=== PATIENT | female | born 1940 | race Caucasian/White ===

== ENCOUNTER → 2018-03-17 | Outpatient (CLI) | payer MEDICARE, OTHER ==
[~2018-03-17] MED LIST: ASP325T PO; CHOL200018 PO; CTLP20T PO; DOXY50CA6 PO; EZET1TAB44 PO; HYDR-3583 PO; LEVO88TA26 PO; LORA10TA7 PO; RLX60T PO
--- NOTE | 2018-03-17 15:52 | Diagnostic Imaging Report ---
INDICATION: Left neck fullness. FINDINGS: Sonographic interrogation of the area of fullness in the left neck was performed. Multiple hypoechoic masses in the left parotid gland are identified. In aggregate, this area measures approximately 3.6 x 1.2 x 2.9 cm. These may represent small cysts or lymph nodes. No other abnormality seen. IMPRESSION: Questionable cyst versus lymph nodes in the left parotid gland. Further characterization with CT of the soft tissues of the neck with contrast could be performed for further evaluation. Dictated by: Dictated on workstation # [id number]
== END ==
LOC: RAD 14:13
PROVIDERS: ATTEND Nurse Practitioner Family
DX: R22.1 Localized swelling, mass and lump, neck (principal)
CPT/HCPCS: 76536

== ENCOUNTER → 2018-04-03 | Outpatient (CLI) | payer MEDICARE, OTHER ==
[~2018-04-03] MED LIST changes: +IOHEXOL 350 MG/ML 100 ML (OMNIPAQUE 350) VIAL IV ONE; +NS 250 ML (IVPB) BAG IV ONE
[2018-04-03 08:46] LABS: BUN/CREATININE RATIO 16; CREATININE SERUM 0.67 MG/DL (0.60-1.30); GFR ESTIMATED > 60
--- NOTE | 2018-04-03 09:35 | Diagnostic Imaging Report ---
CLINICAL INDICATION: Patient with lump on left side of neck since 03/12/2018. Lump is getting bigger. Followup ultrasound dated 03/17/2018. Patient has cervical surgery in the 1980s. EXAM: CT scan of the neck soft tissue performed with 75 cc of Omnipaque 350 IV contrast. Coronal and sagittal reformatted images are created. COMPARISON: Ultrasound of the neck soft tissue dated 03/17/2018. FINDINGS: There is a 9 mm x 6 mm x 13 mm (AP x Trans x CC) ill-defined area of enhancement involving the posterior aspect of the parotid gland in the superficial portion. This area is partially obscured by dental streak artifact limiting evaluation. It is unknown if this represents the same abnormality seen on the comparison ultrasound as the previous lesion measured 3.6 cm x 1.2 cm x 2.9 cm. There are smaller lymph nodes seen adjacent to the left parotid gland tail. There is mild fat stranding seen adjacent to the left parotid gland tail and along the left upper neck soft tissue region. There is no parotid stone seen. The right parotid gland and bilateral submandibular glands are unremarkable. The nasopharynx, oropharynx, hypopharynx laryngeal structures are unremarkable. Thyroid gland is small in size, but otherwise unremarkable. There is no significant lymphadenopathy seen. There is atherosclerotic disease involving the bilateral carotid artery bifurcation and bilateral ICA bulbs. There is concern for possible severe stenosis of the origin of the left cervical ICA and roughly moderate stenosis involving the proximal to mid portion of the cervical right ICA. The visualized upper lung june show emphysematous lung disease. There is cervical spine degenerative disease with vertebral body spurs most pronounced at the C5-C6 and C6-C7 levels. IMPRESSION: 1: There is an ill-defined enhancing nodular area in the superficial portion of the left parotid gland posteriorly. It is unknown if this lesion correlates to the previously seen abnormality on the ultrasound. Considerations would include a primary salivary gland neoplasm versus lymph node. There is mild fat stranding seen along the left side of the neck and left periparotid region. There are subcentimeter lymph nodes adjacent to the parotid tail. There is no salivary gland duct stone seen. Followup CT scan of the neck soft tissue in three months is suggested to evaluate for stability. If this lesion persists and increased size of followup exam, then MRI of the parotids with and without contrast may help better delineate this area. 2: Emphysematous lung disease. 3: Nonspecific small thyroid gland. Dictated by: Dictated on workstation # [id number]
== END ==
LOC: RAD 08:02
PROVIDERS: ATTEND Otolaryngology Otolaryngology/Facial Plastic Surgery
DX: K11.8 Other diseases of salivary glands (principal)
CPT/HCPCS: 36415; 70491; 82565; 84520

== ENCOUNTER 2019-12-07 17:30 | Observation (INO) | payer MEDICARE, OTHER ==
[~2019-12-07] VITALS: Ht 160 cm; Wt 60.2 kg
[~2019-12-07 17:30] MED LIST changes: -IOHEXOL 350 MG/ML 100 ML (OMNIPAQUE 350) VIAL IV ONE; -NS 250 ML (IVPB) BAG IV ONE
[2019-12-07] MEDS ORDERED: NS IV 500 ML 500 ML ONE ×2 (17:35→17:37)
[2019-12-07] MEDS ORDERED: LABETALOL HCL 20 MG/4 ML VIAL IV STA (17:40)
[2019-12-07] MEDS ORDERED: NS IV 500 ML 500 ML IV ONE (17:41)
[2019-12-07 17:49] LABS: BASOPHILS # (AUTO) 0.1 10^3/uL (0.0-0.1); BASOPHILS % (AUTO) 1 % (0-10); EOSINOPHILS # (AUTO) 0.3 10^3/uL (0.0-0.3); EOSINOPHILS % (AUTO) 4 % (0-10); HEMATOCRIT 46 % (35-52); LYMPHOCYTES # (AUTO) 3.4 X 10^3 (1.0-4.0); LYMPHOCYTES % (AUTO) 41 % (12-44); MEAN CORPUSCULAR HEMOGLOBIN 30 PG (25-34); MEAN CORPUSCULAR HGB CONC 33 G/DL (32-36); MEAN CORPUSCULAR VOLUME 93 FL (80-99); MEAN PLATELET VOLUME 10.5 FL (7.4-10.4); MONOCYTES % (AUTO) 12 % (0-12); NEUTROPHILS # (AUTO) 3.5 X 10^3 (1.8-7.8); NEUTROPHILS % (AUTO) 43 % (42-75); PLATELET COUNT 257 10^3/uL (130-400); RED CELL DISTRIBUTION WIDTH 13.3 % (10.0-14.5); WHITE BLOOD COUNT 8.3 10^3/uL (4.3-11.0)
--- NOTE | 2019-12-07 17:49 | ED Neurological Problem ---
General Stated Complaint: SLURRED SPEACH,THINKS SHE HAD A STROKE Source: patient Exam Limitations: no limitations (MARIA T POWELL MD) History of Present Illness Date Seen by Provider: Dec 07, 2019 Time Seen by Provider: 17:32 Initial Comments Here with concerns that she may have had a stroke. She states that about 4:30 PM she had acute onset of shakiness and bilateral hand numbness. She is having difficulty with forming words. She notes that that occurred at about the same time. Her daughter called her and she was having a hard time forming words. That has improved. She is able walk in from the vehicle and walk to the bed relatively unassisted. States that she's had a problem like this before but it usually goes away with just rest. States that she doesn't have any real significant medical problems. Timing/Duration: 1 hour Severity: moderate Associated Symptoms: confusion; No fatigue, No fever/chills, No nausea/vomiting; paresthesia; No trouble walking; weakness (MARIA T POWELL MD) Allergies and Home Medications Allergies Coded Allergies: pneumococcal vaccine (Unverified Allergy, Severe, HIVES, EDEMA, 11/18/11) meperidine (Unverified Allergy, Mild, vomiting, 02/15/10) Patient Home Medication List Home Medication List Reviewed: Yes (MARIA T POWELL MD) Review of Systems Review of Systems Constitutional: see HPI; No chills, No fever Eyes: No Symptoms Reported Ears, Nose, Mouth, Throat: no symptoms reported Respiratory: no symptoms reported Cardiovascular: No chest pain, No palpitations Gastrointestinal: No abdominal pain, No nausea, No vomiting Genitourinary: no symptoms reported Musculoskeletal: no symptoms reported Skin: no symptoms reported Psychiatric/Neurological: See HPI, Tingling Endocrine: No Symptoms Reported (MARIA T POWELL MD) All Other Systems Reviewed Negative Unless Noted: Yes (MARIA T POWELL MD) Past Egjurow-Xtsuyc-Ayzeum Hx Past Med/Social Hx: Reviewed Nursing Past Med/Soc Hx (MARIA T POWELL MD) Patient Social History Alcohol Use: Denies Use Recreational Drug Use: No Smoking Status: Never a Smoker Recent Foreign Travel: No Contact w/Someone Who Travel: No (MARIA T POWELL MD) Immunizations Up To Date Date of Influenza Vaccine: Jun 12, 2011 (MARIA T POWELL MD) Past Medical History Surgeries: No Respiratory: No Cardiac: Yes High Cholesterol Neurological: No Genitourinary: No Musculoskeletal: No Endocrine: Yes Hypothyroidsim Cancer: No (MARIA T POWELL MD) Family Medical History Reviewed Nursing Family Hx (MARIA T POWELL MD) No Pertinent Family Hx (MARIA T POWELL MD) Physical Exam Vital Signs Vital Signs - First Documented 12/07/19 17:30 Pulse 89 Resp 18 B/P (MAP) 213/113 (146) Pulse Ox 93 (DASHA LEPE MD) Vital Signs Capillary Refill : (MARIA T POWELL MD) Height, Weight, BMI Height: '" Weight: lbs. oz. kg; BMI Method:Stated General Appearance: WD/WN, mild distress HEENT: PERRL/EOMI, pharynx normal Neck: full range of motion, supple Respiratory: lungs clear, normal breath sounds Cardiovascular: regular rate, rhythm, no murmur Peripheral Pulses: 2+ Dorsalis Pedis (R), 2+ Left Dors-Pedis (L), 2+ Radial Pulses (R), 2+ Radial Pulses (L) Gastrointestinal: non tender, soft Back: normal inspection, no CVA tenderness, no vertebral tenderness Extremities: normal range of motion, non-tender, normal inspection, no pedal edema Neurologic/Psychiatric: alert, normal mood/affect, oriented x 3 Crainal Nerves: normal hearing, normal speech, PERRL Coordination/Gait: normal finger to nose, normal gait Motor/Sensory: no motor deficit, no sensory deficit, no pronator drift Skin: normal color, warm/dry (MARIA T POWELL MD) Progress/Results/Core Measures Results/Orders Lab Results Laboratory Tests Test 12/07/19 17:40 12/07/19 18:15 Range/Units White Blood Count 8.3 4.3-11.0 10^3/uL Red Blood Count 4.97 4.35-5.85 10^6/uL Hemoglobin 15.0 11.5-16.0 G/DL Hematocrit 46 35-52 % Mean Corpuscular Volume 93 80-99 FL Mean Corpuscular Hemoglobin 30 25-34 PG Mean Corpuscular Hemoglobin Concent 33 32-36 G/DL Red Cell Distribution Width 13.3 10.0-14.5 % Platelet Count 257 130-400 10^3/uL Mean Platelet Volume 10.5 H 7.4-10.4 FL Neutrophils (%) (Auto) 43 42-75 % Lymphocytes (%) (Auto) 41 12-44 % Monocytes (%) (Auto) 12 0-12 % Eosinophils (%) (Auto) 4 0-10 % Basophils (%) (Auto) 1 0-10 % Neutrophils # (Auto) 3.5 1.8-7.8 X 10^3 Lymphocytes # (Auto) 3.4 1.0-4.0 X 10^3 Monocytes # (Auto) 1.0 0.0-1.0 X 10^3 Eosinophils # (Auto) 0.3 0.0-0.3 10^3/uL Basophils # (Auto) 0.1 0.0-0.1 10^3/uL Prothrombin Time 12.6 12.2-14.7 SEC INR Comment 0.9 0.8-1.4 Activated Partial Thromboplast Time 26 24-35 SEC D-Dimer 2.05 H 0.00-0.49 UG/ML Sodium Level 134 L 135-145 MMOL/L Potassium Level 3.4 L 3.6-5.0 MMOL/L Chloride Level 101 98-107 MMOL/L Carbon Dioxide Level 19 L 21-32 MMOL/L Anion Gap 14 5-14 MMOL/L Blood Urea Nitrogen 8 7-18 MG/DL Creatinine 0.72 0.60-1.30 MG/DL Estimat Glomerular Filtration Rate > 60 BUN/Creatinine Ratio 11 Glucose Level 97 70-105 MG/DL Glucometer 100 70-110 MG/DL Calcium Level 9.4 8.5-10.1 MG/DL Corrected Calcium 8.5-10.1 MG/DL Total Bilirubin 0.3 0.1-1.0 MG/DL Aspartate Amino Transf (AST/SGOT) 19 5-34 U/L Alanine Aminotransferase (ALT/SGPT) 13 0-55 U/L Alkaline Phosphatase 147 H 40-136 U/L Troponin I < 0.028 <0.028 NG/ML Total Protein 8.3 H 6.4-8.2 GM/DL Albumin 4.7 H 3.2-4.5 GM/DL Thyroid Stimulating Hormone (TSH) 2.03 0.35-4.94 UIU/ML Free Thyroxine 1.17 0.70-1.48 NG/DL Urine Color YELLOW Urine Clarity CLEAR Urine pH 6.0 5-9 Urine Specific [place] 1.010 L 1.016-1.022 Urine Protein NEGATIVE NEGATIVE Urine Glucose (UA) NEGATIVE NEGATIVE Urine Ketones NEGATIVE NEGATIVE Urine Nitrite NEGATIVE NEGATIVE Urine Bilirubin NEGATIVE NEGATIVE Urine Urobilinogen 0.2 < = 1.0 MG/DL Urine Leukocyte Esterase 2+ H NEGATIVE Urine RBC (Auto) NEGATIVE NEGATIVE Urine RBC NONE /HPF Urine WBC 2-5 /HPF Urine Squamous Epithelial Cells 2-5 /HPF Urine Crystals NONE /LPF Urine Bacteria TRACE /HPF Urine Casts NONE /LPF Urine Mucus NEGATIVE /LPF Urine Culture Indicated NO (DASHA LEPE MD) My Orders Orders - DASHA LEPE MD Ct Angio Head/Neck (12/07/19 18:35) Iohexol Injection (Omnipaque 350 Mg/Ml 1 (12/07/19 18:45) Received Contrast (Hold Metformin- Contr (12/07/19 18:45) Sodium Chloride Flush (Catheter Flush Sy (12/07/19 18:45) Ns (Ivpb) (Sodium Chloride 0.9% Ivpb Bag (12/07/19 18:45) Thyroid Stimulating Hormone (12/07/19 18:49) Free T4 (Free Thyroxine) (12/07/19 18:49) Aspirin Tablet (Aspirin Tablet) (12/07/19 19:45) (DASHA LEPE MD) Medications Given in ED Current Medications Medications Dose Ordered Sig/Yousuf Route Start Time Stop Time Status Last Admin Dose Admin Iohexol 100 ml ONCE ONCE IV 12/07/19 18:45 12/07/19 18:46 DC 12/07/19 19:10 75 ML Sodium Chloride 10 ml NEEDED PRN IV 12/07/19 18:45 12/07/19 19:23 10 ML Sodium Chloride 100 ml ONCE ONCE IV 12/07/19 18:45 12/07/19 18:46 DC 12/07/19 19:10 80 ML Sodium Chloride 500 ml @ 0 mls/hr Q0M ONCE IV 12/07/19 17:41 12/07/19 17:42 DC 12/07/19 17:46 500 MLS/HR (DASHA LEPE MD) Vital Signs/I&O 12/07/19 12/07/19 17:30 18:47 Pulse 89 64 Resp 18 18 B/P (MAP) 213/113 (146) 172/81 (111) Pulse Ox 93 94 (DASHA LEPE MD) Progress Progress Note : Progress Note Seen and evaluated on arrival. IV, labs, EKG, chest x-ray and CT head ordered. Stroke order set initiated. Normal saline 500 mL bolus. Finger stick blood sugar 100. Stroke scale 0 as assessed by me and nursing. Patient did have significant hypertension with a pressure 200s over 100s on arrival 2. Labetalol 20 mg IV ordered. Monitor patient. (MARIA T POWELL MD) Progress Note #1: Time: 18:41 Progress Note I assumed care of this patient from Dr. Powell. CT results have been reviewed. Given her symptoms, CT angiogram to evaluate carotid arteries and large cerebral vessels is appropriate. CT angiogram has been ordered and patient is agreeable. She is still feeling much better and asymptomatic at this time. Blood pressure is within acceptable range after labetalol. Patient also has a history of thyroid disease. I will add a TSH and free T4 to her labs. Progress Note #2: Time: 20:16 Progress Note Patient remains asymptomatic and blood pressure remains controlled. Due to the extreme hypertension on patient's presentation and the seriousness of her symptoms at that time, admission overnight is felt most appropriate. Case was discussed with Dr. Bryan and bridging orders reviewed. Patient is agreeable to admission. Her daughter was updated. CODE STATUS was discussed and patient and daughter agree DO NOT RESUSCITATE is their desired status. CT angiogram was obtained and demonstrated stenosis of the vertebral artery but no pathology thought to be associated with her symptoms on presentation. 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 Normal axis. No evidence of ST elevation CA. Similar to previous of 05/25/2011. Interpreted by me. (MARIA T POWELL MD) Diagnostic Imaging Diagonstic Imaging: CT Plain Films/CT/US/NM/MRI: head Comments CT head viewed by me and report reviewed. See report below: NAME: LISY HOLDEN [facility] REC#: [id number] PT STATUS: REG ER : 1940 PHYSICIAN: MARIA T POWELL MD ADMIT DATE: 12/07/19/ER Draft Date of Exam:12/07/19 CT HEAD WO-R/O STROKE PROCEDURE: CT head without contrast, rule out stroke. TECHNIQUE: Multiple contiguous axial images were obtained through the brain without the use of intravenous contrast. Auto Exposure Controls were utilized during the CT exam to meet ALARA standards for radiation dose reduction. INDICATION: Evaluate for stroke. Syncope. Both arms going numb. Aphasia. COMPARISON: 10/25/2011. FINDINGS: No large acute territorial ischemia, mass, or hemorrhage. Focal decreased attenuation is seen in the left basal ganglia, favored to represent chronic encephalomalacia from prior infarct. No midline shift or mass effect. Decreased attenuation is seen in the periventricular and subcortical white matter. The ventricles and cortical sulci are prominent. The basilar cisterns are patent and unremarkable. The calvarium is intact. The visualized paranasal sinuses are clear. IMPRESSION: 1. No large acute territorial ischemia, mass, or hemorrhage. If continued concern for acute ischemia, consider MRI brain to further evaluate. 2. 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 3. Chronic microvascular disease with generalized parenchymal volume loss. Dictated on workstation # [id number] Dict: 12/07/19 1814 Trans: 12/07/19 1828 [facility] [id number] Interpreted by: MAHENDRA SANTOS DO Diagonstic Imaging: Xray Plain Films/CT/US/NM/MRI: chest Comments Chest x-ray viewed by me and report reviewed. See report below: NAME: LISY HOLDEN [facility] REC#: [id number] PT STATUS: REG ER : 1940 PHYSICIAN: MARIA T POWELL MD ADMIT DATE: 12/07/19/ER Draft Date of Exam:12/07/19 CHEST 1 VIEW, AP/PA ONLY Clinical indication: Patient having symptoms of shaking and passing out. Rule out stroke. Exam: Chest x-ray PA view only. Comparisons: Chest x-ray dated 05/13/2010. Findings: Lungs/pleura: Bilateral apical pleural parenchymal thickening/scarring is again seen. Lungs are clear. There is no pneumothorax. There is no pleural effusion. Mediastinum: Unremarkable. Pulmonary vasculature: Unremarkable. Heart: Cardiac silhouette is upper limits of normal size. Bones/extrathoracic soft tissue: Unremarkable. Impression: Stable chest x-ray exam with no interval radiographic evidence of acute cardiopulmonary process. Dictated on workstation # [id number] Dict: 12/07/191817 Trans: 12/07/191827 [facility] [id number] Interpreted by: KATHY LOZA MD Diagonstic Imaging: CT Plain Films/CT/US/NM/MRI: other (angiogram head and neck) Comments CT angiogram of the head and neck report reviewed and discussed with the radiologist. See report below: NAME: LISY HOLDEN [facility] REC#: [id number] PT STATUS: REG ER : 1940 PHYSICIAN: DASHA LEPE MD ADMIT DATE: 12/07/19/ER Signed Date of Exam:12/07/19 CT ANGIO HEAD/NECK PROCEDURE: CT angiography of the head and CT angiography of the neck with and without contrast. TECHNIQUE: Contiguous noncontrast images were obtained from the skull base through the vertex. After intravenous contrast administration, helical CT angiography of the neck was performed. Source data was reformatted into 3D MIP projections. Delayed post contrast acquisition was also obtained. Auto Exposure Controls were utilized during the CT exam to meet ALARA standards for radiation dose reduction. INDICATION: Aphasia. Bilateral arm numbness. Comparison: CT head performed the same date. FINDINGS: CTA Neck: The visualized portions of the aortic arch demonstrate no evidence of aneurysm or dissection. There is conventional branching pattern of the great vessels of the aorta. The brachiocephalic artery is normal in course and caliber. The right and left common carotid origins are unremarkable. The origin of the left subclavian artery is patent. The common carotid arteries and internal carotid arteries demonstrate a tortuous course. There is calcified atherosclerotic plaque in the bilateral carotid bulbs and proximal internal carotid arteries without flow-limiting stenosis. No evidence of dissection in the carotid systems. The external carotid arteries are patent and unremarkable. The right vertebral artery is dominant. The origin of the right vertebral artery is seen and is unremarkable. The origin of the left vertebral artery is seen and is unremarkable. There is no focal stenosis seen within the neck. There is no dissection. The osseous structures of the cervical spine are unremarkable. Included views through the lung apices demonstrate centrilobular emphysema. CTA brain: Atherosclerotic plaque is seen in the [place] of the bilateral terminal internal carotid arteries without significant stenosis. No stenosis is seen in the bilateral anterior, middle, and posterior cerebral arteries. Prominent bilateral posterior communicating arteries are visualized. No evidence of aneurysm the [place]. In the posterior circulation, the right vertebral artery is dominant. There is high-grade stenosis of the distal right vertebral artery of approximately 90%. Both the right and left PICA arteries are identified. The basilar artery is somewhat diminutive. The terminal branch vessels including the superior cerebellar arteries unremarkable. IMPRESSION: 1. 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 2. Diminutive appearance of the basilar artery, likely due to prominent bilateral posterior communicating arteries. 3. No evidence of large vessel occlusion. No aneurysm in the [place]. 4. No acute dissection or stenosis in the bilateral carotid arteries. Findings were discussed with Dr. Lepe at 7:25 PM on 12/07/[address] Mahendra Santos. Dictated by: Dictated on workstation # [id number] Dict: 12/07/191916 Trans: 12/07/191930 [facility] [id number] Interpreted by: MAHENDRA SANTOS DO Electronically signed by: MAHENDRA SANTOS DO 12/07/191930 (DASHA LEPE MD) Departure Impression Primary Impression: Expressive aphasia Additional Impression: Malignant hypertension Disposition: ADMITTED INPATIENT Condition: Improved Admissions Decision to Admit Reason: Admit from ER (General) Decision to Admit/Date: Dec 07, 2019 Time/Decision to Admit Time: 18:35 (DASHA LEPE MD) Departure-Patient Inst. Referrals: ALESHIA GARCIA MD (PCP/Family) Primary Care Physician MARIA T POWELL MD Dec 07, 2019 17:49 DASHA LEPE MD Dec 07, 2019 18:34
--- NOTE | 2019-12-07 17:52 | NUR ---
CALLED DAUGHTER AXEL AT [phone] AND GAVE HER UPDATE
[2019-12-07 18:09] LABS: FIBRIN DEGRADATION PRODUCTS 2.05 UG/ML (0.00-0.49); INR 0.9 (0.8-1.4); PROTHROMBIN TIME PATIENT 12.6 SEC (12.2-14.7)
[2019-12-07] MEDS ORDERED: morphine INJ 10 MG/ML 1ML (SYR OR VIAL) IVP STA (18:15)
--- NOTE | 2019-12-07 18:15 | NUR ---
BACK FROM CT
[2019-12-07 18:16] LABS: ALANINE AMINOTRANSFERASE 13 U/L (0-55); ALBUMIN 4.7 GM/DL (3.2-4.5); ALKALINE PHOSPHATASE 147 U/L (40-136); BILIRUBIN,TOTAL 0.3 MG/DL (0.1-1.0); BUN/CREATININE RATIO 11; CALCIUM 9.4 MG/DL (8.5-10.1); CARBON DIOXIDE 19 MMOL/L (21-32); CHLORIDE 101 MMOL/L (98-107); CREATININE SERUM 0.72 MG/DL (0.60-1.30); GFR ESTIMATED > 60; GLUCOSE 97 MG/DL (70-105); POTASSIUM 3.4 MMOL/L (3.6-5.0); SODIUM 134 MMOL/L (135-145); TOTAL PROTEIN 8.3 GM/DL (6.4-8.2)
[2019-12-07 18:28] LABS: BILIRUBIN,URINE NEGATIVE (NEGATIVE); CLARITY,URINE CLEAR; COLOR,URINE YELLOW; GLUCOSE, URINE (UA) NEGATIVE (NEGATIVE); KETONES,URINE NEGATIVE (NEGATIVE); LEUKOCYTE ESTERASE ,URINE 2+ (NEGATIVE); NITRITE,URINE NEGATIVE (NEGATIVE); PROTEIN,URINE NEGATIVE (NEGATIVE)
--- NOTE | 2019-12-07 18:29 | Diagnostic Imaging Report ---
PROCEDURE: CT head without contrast, rule out stroke. TECHNIQUE: Multiple contiguous axial images were obtained through the brain without the use of intravenous contrast. Auto Exposure Controls were utilized during the CT exam to meet ALARA standards for radiation dose reduction. INDICATION: Evaluate for stroke. Syncope. Both arms going numb. Aphasia. COMPARISON: 10/25/2011. FINDINGS: No large acute territorial ischemia, mass, or hemorrhage. Focal decreased attenuation is seen in the left basal ganglia, favored to represent chronic encephalomalacia from prior infarct. No midline shift or mass effect. Decreased attenuation is seen in the periventricular and subcortical white matter. The ventricles and cortical sulci are prominent. The basilar cisterns are patent and unremarkable. The calvarium is intact. The visualized paranasal sinuses are clear. IMPRESSION: 1. No large acute territorial ischemia, mass, or hemorrhage. If continued concern for acute ischemia, consider MRI brain to further evaluate. 2. 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 3. Chronic microvascular disease with generalized parenchymal volume loss. Dictated by: Dictated on workstation # [id number]
--- NOTE | 2019-12-07 18:29 | Diagnostic Imaging Report ---
Clinical indication: Patient having symptoms of shaking and passing out. Rule out stroke. Exam: Chest x-ray PA view only. Comparisons: Chest x-ray dated 05/13/2010. Findings: Lungs/pleura: Bilateral apical pleural parenchymal thickening/scarring is again seen. Lungs are clear. There is no pneumothorax. There is no pleural effusion. Mediastinum: Unremarkable. Pulmonary vasculature: Unremarkable. Heart: Cardiac silhouette is upper limits of normal size. Bones/extrathoracic soft tissue: Unremarkable. Impression: Stable chest x-ray exam with no interval radiographic evidence of acute cardiopulmonary process. Dictated by: Dictated on workstation # [id number]
[2019-12-07] MEDS ORDERED: CATHETER FLUSH 10 ML SYR IV PRN (18:45)
[2019-12-07] MEDS ORDERED: IOHEXOL 350 MG/ML 100 ML (OMNIPAQUE 350) VIAL IV ONE (18:45)
[2019-12-07] MEDS ORDERED: NS 100 ML (IVPB) BAG IV ONE (18:45)
[2019-12-07] MEDS ORDERED: HOLD METFORMIN - RECEIVED CONTRAST 20 ML VIAL IV SCH (18:45)
[2019-12-07 18:47] VITALS: BP 172/81
[2019-12-07 18:54] LABS: BACTERIA,URINE TRACE /HPF
--- NOTE | 2019-12-07 18:54 | NUR ---
TO CT ANGIO
--- NOTE | 2019-12-07 19:00 | NUR ---
REPORT TO HILARIA
[2019-12-07 19:24] LABS: FREE T4 (FREE THYROXINE) 1.17 NG/DL (0.70-1.48)
--- NOTE | 2019-12-07 19:30 | Diagnostic Imaging Report ---
PROCEDURE: CT angiography of the head and CT angiography of the neck with and without contrast. TECHNIQUE: Contiguous noncontrast images were obtained from the skull base through the vertex. After intravenous contrast administration, helical CT angiography of the neck was performed. Source data was reformatted into 3D MIP projections. Delayed post contrast acquisition was also obtained. Auto Exposure Controls were utilized during the CT exam to meet ALARA standards for radiation dose reduction. INDICATION: Aphasia. Bilateral arm numbness. Comparison: CT head performed the same date. FINDINGS: CTA Neck: The visualized portions of the aortic arch demonstrate no evidence of aneurysm or dissection. There is conventional branching pattern of the great vessels of the aorta. The brachiocephalic artery is normal in course and caliber. The right and left common carotid origins are unremarkable. The origin of the left subclavian artery is patent. The common carotid arteries and internal carotid arteries demonstrate a tortuous course. There is calcified atherosclerotic plaque in the bilateral carotid bulbs and proximal internal carotid arteries without flow-limiting stenosis. No evidence of dissection in the carotid systems. The external carotid arteries are patent and unremarkable. The right vertebral artery is dominant. The origin of the right vertebral artery is seen and is unremarkable. The origin of the left vertebral artery is seen and is unremarkable. There is no focal stenosis seen within the neck. There is no dissection. The osseous structures of the cervical spine are unremarkable. Included views through the lung apices demonstrate centrilobular emphysema. CTA brain: Atherosclerotic plaque is seen in the godwin of the bilateral terminal internal carotid arteries without significant stenosis. No stenosis is seen in the bilateral anterior, middle, and posterior cerebral arteries. Prominent bilateral posterior communicating arteries are visualized. No evidence of aneurysm the deering of Farris. In the posterior circulation, the right vertebral artery is dominant. There is high-grade stenosis of the distal right vertebral artery of approximately 90%. Both the right and left PICA arteries are identified. The basilar artery is somewhat diminutive. The terminal branch vessels including the superior cerebellar arteries unremarkable. IMPRESSION: 1. 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 2. Diminutive appearance of the basilar artery, likely due to prominent bilateral posterior communicating arteries. 3. No evidence of large vessel occlusion. No aneurysm in the deering of Farris. 4. No acute dissection or stenosis in the bilateral carotid arteries. Findings were discussed with Dr. Lepe at 7:25 PM on 12/07/[address] Mahendra Geiger. Dictated by: Dictated on workstation # [id number]
[2019-12-07] MEDS ORDERED: ASPIRIN 325 MG (5 GR) TABLET PO ONE (19:45)
[2019-12-07 21:04] VITALS: BP 187/83
--- NOTE | 2019-12-07 21:10 | NUR ---
LISY HOLDEN admitted to room 415-1, with an admitting diagnosis of Expressive Aphasia and Malignant Hypertension, on 12/07/19 from ED via wheelchair, accompanied by staff.LISY HOLDEN introduced to surroundings, call light, bed controls, phone, TV, temperature control, lights, meal times, smoking policy, visitor policy, side rail policy, bathrooms and showers. Patient Rights given to patient in the handbook. LISY HOLDEN verbalizes understanding that [facility] is not responsible for the loss or damage to any personal effects or valuables that are kept in the patients posession during their hospitalization. LISY HOLDEN verbalizes understanding of Interdisciplinary Patient Education. Patient and/or family were informed about the Rapid Response Team and its purpose.
[2019-12-07 21:13] VITALS: BP 205/83
[2019-12-07] MEDS ORDERED: LABETALOL HCL 20 MG/4 ML VIAL IV PRN (21:15)
[2019-12-07 23:55] VITALS: BP 169/70
[2019-12-08 04:29] LABS: CHOLESTEROL 232 MG/DL (< 200); HDL CHOLESTEROL 49 MG/DL (40-60); TRIGLYCERIDES 115 MG/DL (<150); VLDL CHOLESTEROL 23 MG/DL (5-40)
[2019-12-08 04:35] VITALS: BP 149/74
[2019-12-08 07:39] VITALS: BP 182/77
[2019-12-08 08:00] VITALS: BP 179/73
[2019-12-08] MEDS ORDERED: ASPIRIN 81 MG CHEW (CHILDREN'S ASA) PO SCH (09:00)
--- NOTE | 2019-12-08 10:02 | Physical Therapy Evaluation ---
PT Evaluation-General Medical Diagnosis Admission Date Dec 07, 2019 at 19:46 Medical Diagnosis: Expressive Aphasia and Malignant Hypertension Onset Date: Dec 07, 2019 Therapy Diagnosis Therapy Diagnosis: weakness Precautions Precautions/Isolations: Standard Precautions Weight Bear Status Right Lower Extremity: Right Weight Bearing/Tolerated Left Lower Extremity: Left Weight Bearing/Tolerated Referral Physician: Randi Reason for Referral: Evaluation/Treatment Medical History Pertinent Medical History: Hypothroidism Additional Medical History high cholesterol Social History Current Living Status: Alone Entry Into Home: Level Entry Prior Prior Level of Function SCALE: Activities may be completed with or without assistive devices. 8-Vtnvfzmvaz-pfziymo completes the activity by him/herself with no assistance from a helper. 5-Set-up or Clean-up Assistance-helper sets up or cleans up; patient completes activity. [place] assists only prior to or following the activity. 4-Supervision or Touching Assistance-helper provides verbal cues and/or touching/steadying and/or contact guard assistance as patient completes activity. Assistance may be provided throughout the activity or intermittently. 3-Partial/Moderate Assistance-helper does LESS THAN HALF the effort. [place] lifts, holds or supports trunk or limbs, but provides less than half the effort. 2-Substantial/Maximal Assistance-helper does MORE THAN HALF the effort. [place] lifts or holds trunk or limbs and provides more than half the effort. 6-Dsahvnvzp-popveo does ALL the effort. Patient does none of the effort to complete the activity. Or, the assistance of 2 or more helpers is required for the patient to complete the activity. If activity was not attempted, code reason: 7-Patient Refused. 9-Not Applicable-not attempted and the patient did not perform the activity before the current illness, exacerbation or injury. 10-Not Attempted due to Environmental Limitations-(lack of equipment, weather restraints, etc.). 88-Not Attempted due to Medical Conditions or Safety Concerns. Bed Mobility: 6 Transfers (B,C,W/C): 6 Gait: 6 Stairs: 6 Indoor Mobility (Ambulation): Independent Stairs: Independent PT Evaluation-Current Subjective Patient in bed pre tx, agrees to PT, has no complaints of pain. Pt/Family Goals to be independent at home Objective Patient Orientation: Person, Place, Situation ROM/Strength ROM Lower Extremities WNL Strength Lower Extremities 5/5 gross RLE, 5/5 gross LLE except for hip flexion 4+/5 Neuromuscular (Tone, Coordination, Reflexes) good tracking bilaterally, possibly slight decreased peripheral vision on the left side Sensory Hearing: Functional Sensation Right Lower Extremit: Intact Sensation Left Lower Extremity: Intact Transfers Roll Left to Right (QC): 6 Sit to Lying (QC): 6 Lying to Sitting/Side of Bed(Q: 6 Sit to Stand (QC): 6 Chair/Hap-yv-Ksmca Xfer(QC): 6 Gait Walk 10 feet (QC): 6 Walk 50 ft with 2 Turns(QC): 6 Walk 150 ft (QC): 6 Distance: 300' Gait Assistive Device: None Comments/Gait Description steady, brisk ambulation, no complaints of dizziness, no unsteadiness Balance Sitting Static: Normal Sitting Dynamic: Normal Standing Static: Normal Standing Dynamic: Normal Assessment/Needs Patient independent with mobility, no unsteadiness or balance impairment. Rehab Potential: Good PT Plan Problem List Problem List: Functional Strength Treatment/Plan Treatment Plan: Discontinue PT Treatment Duration: Dec 08, 2019 Frequency: Patient and/or Family Agrees t: Yes Safety Risks/Education Patient Education: Gait Training, Transfer Techniques, Correct Positioning, Safety Issues Teaching Recipient: Patient Teaching Methods: Demonstration, Discussion Response to Teaching: Verbalize Understanding Discharge Recommendations Plan discharge Therapy Discharge Recommendati: Home & Family Time/GCodes Time In: 942 Time Out: 954 Total Billed Treatment Time: 12 Total Billed Treatment 1 visit KRISTEL Mullins' RINA JACOBS PT Dec 08, 2019 10:02
--- NOTE | 2019-12-08 11:21 | NUR ---
Pt doing well and eager for discharge.
[2019-12-08 11:49] VITALS: BP 161/72
--- NOTE | 2019-12-08 12:07 | Discharge Inst-Simple/Standard ---
Discharge Inst-Standard Patient Instructions/Follow Up Plan of Care/Instructions/FU: Please continue to take your medications as written. Please follow up with your PCP in the next week to follow up this hospital stay. Activity as Tolerated: Yes Discharge Diet: Cardiac Diet Return to The Hospital For: Chest pain, palipations, facial droop, weakness, slurred or abnormal speech, fever, shortness of breath, if you feel you are getting worse. SILVER KAT MD Dec 08, 2019 12:07
[2019-12-08] MEDS ORDERED: POTA8TAB53 (12:26)
[2019-12-08] MEDS ORDERED: LEVO88TA54 (12:26)
--- NOTE | 2019-12-08 13:57 | Short Stay Summary-Hospitalist ---
History of Present Illness HPI/Chief Complaint Pt is an 79yoCF with a PMH of hypothyroidism and osteoporosis who presented to the ER due to aphasia. She states that she was feeling well yesterday and at 4pm when she sat down to watch Medical Technician Meghan she got very nauseated and being to feel "terrible." Shortly after that her daughter called her and patient was unable to speak. She states she could only get "jibberish" out. Her daughter then went to her house to check on her and this prompted her to seek care in the ER. By available to the ER she was able to ambulate in on her own and her symptoms had nearly resolved. She was taken to CT which was negative for ICH. She was admitted for TIA due to elevated ABCD2 score. This morning she states she feels better and her speech has returned to normal. She has no complaints. She has been up and ambulated with PT and is ambulatory while I am in the room. She is requesting discharge home. Source: patient Date Seen 12/08/19 Time Seen by a Provider: 10:30 Attending Physician Joy Kat MD PCP Shin Cunningham MD Referring Physician Date of Admission Dec 07, 2019 at 19:46 Home Medications & Allergies Home Medications Reviewed patient Home Medication Reconciliation performed by pharmacy medication reconciliations installer technician and/or nursing. Patients Allergies have been reviewed. Allergies Allergies Coded Allergies pneumococcal vaccine (Unverified Allergy, Severe, HIVES, EDEMA, 11/18/11) meperidine (Unverified Allergy, Mild, vomiting, 02/15/10) Past Fgryxye-Uwggdp-Ftwudx Hx Past Med/Social Hx: Reviewed Nursing Past Med/Soc Hx Patient Social History Employed/Student: retired Alcohol Use: Denies Use Recreational Drug Use: No Smoking Status: Never a Smoker Recent Foreign Travel: No Contact w/other who traveled: No Recent Infectious Disease Expo: No Immunizations Up To Date Date of Influenza Vaccine: Jun 12, 2019 Past Medical History Cardiac: High Cholesterol Neurological: TIA Musculoskeletal: Osteoporosis Endocrine: Hypothyroidsim Family History Reviewed Nursing Family Hx No Pertinent Family Hx Review of Systems Constitutional: No chills, No fever EENTM: no symptoms reported Respiratory: no symptoms reported Cardiovascular: No chest pain, No palpitations Gastrointestinal: No abdominal pain; nausea; No vomiting Genitourinary: no symptoms reported Musculoskeletal: no symptoms reported Skin: no symptoms reported Psychiatric/Neurological: See HPI Physical Exam Physical Exam Vital Signs Vital Signs - First Documented 12/07/19 12/07/19 17:30 20:55 Temp 36.7 Pulse 89 Resp 18 B/P (MAP) 213/113 (146) Pulse Ox 93 O2 Delivery Room Air Capillary Refill : Less Than 3 Seconds Height, Weight, BMI Height: '" Weight: lbs. oz. kg; 23.51 BMI Method:Stated General Appearance: No Apparent Distress, WD/WN HEENT: Moist Mucous Membranes; No Scleral Icterus (L), No Scleral Icterus (R) Neck: Normal Inspection, Supple Respiratory: Lungs Clear, No Accessory Muscle Use, No Respiratory Distress Cardiovascular: Regular Rate, Rhythm, No Murmur Gastrointestinal: Normal Bowel Sounds, Non Tender, Soft Extremity: No Calf Tenderness, No Pedal Edema Neurologic/Psychiatric: Alert, Oriented x3, Normal Mood/Affect; No Abnormal Gait, No Aphasia, No Facial Droop Skin: Normal Color, Warm/Dry Results Results/Procedures Labs Laboratory Tests 12/07/19 17:40 Patient resulted labs reviewed. Imaging: Reviewed Imaging Report Imaging Date of Exam:12/07/19 CT HEAD WO-R/O STROKE PROCEDURE: CT head without contrast, rule out stroke. TECHNIQUE: Multiple contiguous axial images were obtained through the brain without the use of intravenous contrast. Auto Exposure Controls were utilized during the CT exam to meet ALARA standards for radiation dose reduction. INDICATION: Evaluate for stroke. Syncope. Both arms going numb. Aphasia. COMPARISON: 10/25/2011. FINDINGS: No large acute territorial ischemia, mass, or hemorrhage. Focal decreased attenuation is seen in the left basal ganglia, favored to represent chronic encephalomalacia from prior infarct. No midline shift or mass effect. Decreased attenuation is seen in the periventricular and subcortical white matter. The ventricles and cortical sulci are prominent. The basilar cisterns are patent and unremarkable. The calvarium is intact. The visualized paranasal sinuses are clear. IMPRESSION: 1. No large acute territorial ischemia, mass, or hemorrhage. If continued concern for acute ischemia, consider MRI brain to further evaluate. 2. 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 3. Chronic microvascular disease with generalized parenchymal volume loss. Short Stay Diagnosis Discharge Diagnosis-Short Stay Admission Diagnosis TIA Final Discharge Diagnosis TIA Conclusion Plan TIA Hyperlipidemia MOnitored on telemetry overnight and remained in sinus rhythm Symptoms now completely resolved, requesting discharge home Discussed secondary prevention- she declines statin as she did not tolerate it before Will need follow up with Dr Cunningham as an outpatient, can consider MRI\\ Ambulated with PT, will DC home Clinical Quality Measures DVT/VTE Risk/Contraindication: Risk Factor Score Per Nursin RFS Level Per Nursing on Admit: 2=Moderate JOY KAT MD Dec 08, 2019 13:57
[2019-12-08 15:00] VITALS: BP 161/72
== END 2019-12-08 13:51 | disposition home or self-care (01) ==
LOC: EDUNIT# 17:30 → ER 17:32 → 4TH 19:46 → UNDOADMOB 19:46 → 4TH 21:01 → UNDODISOB 12-08 15:00
PROVIDERS: ADMIT Family Medicine; ATTEND Family Medicine
DX: G45.9 Transient cerebral ischemic attack, unspecified (principal); R47.01 Aphasia; E78.5 Hyperlipidemia, unspecified; E03.9 Hypothyroidism, unspecified; I10 Essential (primary) hypertension; I67.2 Cerebral atherosclerosis; M81.0 Age-related osteoporosis without current pathological fracture; Z66 Do not resuscitate
CPT/HCPCS: 36415; 70450; 70496; 70498; 71045; 80053; 80061; 81000; 82962; 84439; 84443; 84484; 85025; 85379; 85610; 85730; 93041; 96374; G0378

== ENCOUNTER → 2020-12-15 | Outpatient (CLI) | payer MEDICARE, OTHER ==
[~2020-12-15] MED LIST changes: +LEVO88TA54; +POTA8TAB54
== END ==
LOC: CARD 11:30
PROVIDERS: ATTEND Nurse Practitioner Family
DX: I49.9 Cardiac arrhythmia, unspecified (principal); Z86.79 Personal history of other diseases of the circulatory system
CPT/HCPCS: 93005

== ENCOUNTER 2022-05-07 18:03 | Emergency (ER) | payer MEDICARE, OTHER ==
[~2022-05-07] VITALS: Ht 160 cm; Wt 60.2 kg
--- NOTE | 2022-05-07 18:19 | ED Lower Extremity ---
General Chief Complaint: Lower Extremity Stated Complaint: ANKLE PAIN Source: patient Exam Limitations: no limitations History of Present Illness Date Seen by Provider: May 07, 2022 Time Seen by Provider: 18:07 Initial Comments Patient to the ER by EMS from home with a chief complaint of a fall about an hour ago. She says she has Raynaud's and sometimes her feet will go to sleep. She thought she would be able to bear weight on it but says she tried to stand up it gave out underneath her and she fell. She denies striking her head nor being on any blood thinners. She supposed to be taking medicines for her blood pressure. She says she ate a salty casserole tonight and because of that her blood pressure is high. She declined a thing for pain including ice from EMS. She has no previous fracture or injury to her right ankle. She did notice swelling in her ankle and when family brought over some crutches she did not feel like she would be able to get by with out being checked out. Allergies and Home Medications Allergies Coded Allergies: pneumococcal vaccine (Unverified Allergy, Severe, HIVES, EDEMA, 11/18/11) meperidine (Unverified Allergy, Mild, vomiting, 02/15/10) Vuhqzyx-Yeb-Ubu Reductase Inhibitor (Verified Adverse Reaction, Unknown, puffiness, 12/08/19) Patient Home Medication List Home Medication List Reviewed: Yes Hydrocodone/Acetaminophen (Hydrocodone-Acetamin 5-325 mg) 5 Mg-325 Mg Tablet, 1 TAB PO Q6H PRN for PAIN-MODERATE (5-7) Prescribed by: RAFAEL YOON on 05/07/222009 Levothyroxine Sodium (Levothyroxine Sodium) 88 Mcg Tablet, 88 MCG DAILY, (Reported) Entered as Reported by: DEEPAK SALEH on 12/08/19 122 Potassium Chloride (K-Tab ER) 8 Meq Tablet.er, 8 MEQ DAILY, (Reported) Entered as Reported by: DEEPAK SALEH on 12/08/19 1226 [wheelchair] , EA TOP DAILY PRN, (DME) Prescribed by: RAFAEL YOON on 05/07/222021 Review of Systems Constitutional: No chills, No diaphoresis EENTM: No ear discharge, No ear pain Respiratory: No cough, No short of breath Cardiovascular: No chest pain, No edema Gastrointestinal: No abdominal pain, No nausea, No vomiting Genitourinary: No discharge, No dysuria Musculoskeletal: see HPI; No back pain; joint pain, joint swelling All Other Systems Reviewed Negative Unless Noted: Yes Past Rhiyvkq-Qyhqce-Blmolv Hx Patient Social History Tobacco Use?: No Use of E-Cig and/or Vaping dev: No Substance use?: No Alcohol Use?: No Pt feels they are or have been: No Past Medical History Surgeries: No Respiratory: No Cardiac: Yes High Cholesterol Neurological: No TIA Genitourinary: No Gastrointestinal: Yes Musculoskeletal: No Osteoporosis Endocrine: Yes Hypothyroidsim Cancer: No Family Medical History No Pertinent Family Hx Physical Exam Vital Signs Vital Signs - First Documented 05/07/22 18:10 Temp 36.0 Pulse 71 Resp 16 B/P (MAP) 191/82 (118) Pulse Ox 96 O2 Delivery Room Air Capillary Refill : Height, Weight, BMI Height: '" Weight: lbs. oz. kg; 23.51 BMI Method:Stated General Appearance: WD/WN, no apparent distress HEENT: PERRL/EOMI, normal ENT inspection Neck: full range of motion, normal inspection Cardiovascular: normal peripheral pulses, regular rate, rhythm, no edema Respiratory: no respiratory distress, no accessory muscle use Gastrointestinal: non tender, soft, no organomegaly Legs: bilateral leg non-tender, bilateral leg normal inspection, bilateral leg normal range of motion Ankles: left ankle non-tender, left ankle normal inspection, left ankle normal range of motion, left ankle no evidence of injury; right ankle bone tenderness (Posterior medial and lateral malleolus tender to palpation with swelling), right ankle soft tissue tenderness, right ankle swelling Feet: left foot non-tender; bilateral foot normal inspection, bilateral foot normal range of motion; left foot no evidence of injury; right foot bone tenderness (Tenderness on the ball of her foot) Neurologic/Psychiatric: alert, normal mood/affect, oriented x 3 Skin: normal color, warm/dry Progress/Results/Core Measures Results/Orders My Orders Orders - RAFAEL YOON Ankle, Right, 3 Views (05/07/22 18:15) Rx-Hydrocodone/Apap 5-325 Mg (Rx-Vicodin (05/07/22 20:00) Vital Signs/I&O 05/07/22 18:10 Temp 36.0 Pulse 71 Resp 16 B/P (MAP) 191/82 (118) Pulse Ox 96 O2 Delivery Room Air Progress Progress Note #1: Time: 18:18 Progress Note Ice was applied, patient declined a thing for pain. We will get x-ray imaging of her right ankle. Progress Note #2: Time: 20:40 Progress Note The patient's blood pressure was noted to be high 190 when she arrived. She blames this on a high sodium casserole she was eating. She does not take blood pressure medicines as she feels she has very labile blood pressure and has had a difficult time controlling it with blood pressure medicines. She has elected to just treat holistically. Before she left her blood pressure was 200/100. Again we offered her something for her blood pressure which she declined. This has been an ongoing issue which she says that sometimes her blood pressure will be that high and then later she will take it at home and it would be 110. Certainly with this labile blood pressure history there is some concern she may have pain and/or anxiety contributing to her high blood pressure. She says what works best for her blood pressure is lorazepam and she has had a pack of 60 tablets for the past couple years and still has 40 of them left she says. We will let her follow-up with her primary care doctor for management of her blood pressure outpatient Diagnostic Imaging Diagonstic Imaging: Xray Plain Films/CT/US/NM/MRI: ankle (Right) Comments [facility], [place] NAME: LISY HOLDEN [facility] REC#: [id number] PT STATUS: REG ER : 1940 PHYSICIAN: RAFAEL YOON MD ADMIT DATE: 05/07/22/ER Draft Date of Exam:05/07/22 ANKLE, RIGHT, 3 VIEWS CLINICAL INDICATION: Patient attempted to stand and felt a pop in the right ankle and now has pain and hurts to bear weight. EXAM: X-ray of the right ankle, 3 views. COMPARISON: None. FINDINGS: There is a displaced fracture of the posterior malleolus which is distracted by roughly 7 mm. There is roughly 3 mm step-off in the articular portion. There is slight anterior position of the distal tibia in relation to the talus. There is a slightly displaced fracture of the lateral malleolus which is displaced slightly laterally. The medial malleolus appears intact. The ankle mortise and syndesmotic joints unremarkable. There is swelling about the ankle. IMPRESSION: There is displaced fractures involving the lateral and posterior malleolar regions which is described above. There is soft tissue swelling about the ankle. Dictated on workstation # [id number] Dict: 05/07/221831 Trans: 05/07/221837 [facility] [id number] Interpreted by: AKTHY LOZA MD Electronically signed by: Reviewed: Reviewed by Me Consults : Consulting Physician: DOLORES JIANG MD Consults Notes Discussed the case with Dr. Jiang, orthopedic surgery and he agrees that patient will need further evaluation probably a CAT scan and if she can go home and follow-up in the clinic he would recommend that with a walker and/or wheelchair, nonweightbearing. Departure Impression Primary Impression: Ankle fracture Qualified Codes: S82.891A - Other fracture of right lower leg, initial encounter for closed fracture Disposition: HOME, SELF-CARE Condition: Stable Departure-Patient Inst. Decision time for Depature: 20:01 Referrals: ALESHIA GARCIA MD (PCP/Family) Primary Care Physician DOLORES JIANG MD Patient Instructions: Ankle Fracture (DC) Add. Discharge Instructions: Hydrocodone 1 tablet every 6 hours needed for severe pain. Ice 20 minutes on every 2 hours while awake for the next 2 [address] Jiang, orthopedics and request follow-up next week. Keep your ankle elevated above the level of your heart to reduce swelling and pain. You may take the splint off and rewrap it looser if it is causing pressure or pain. Keep the splint on except to bathe. All discharge instructions reviewed with patient and/or family. Voiced understanding. Scripts [wheelchair] No Conflict Check EA TOP DAILY PRN for Pain, #1 0 Refills NPI #: [id number] Prov: RAFAEL YOON 05/07/22 Hydrocodone/Acetaminophen (Hydrocodone-Acetamin 5-325 mg) 5 Mg-325 Mg Tablet 1 TAB PO Q6H PRN for PAIN-MODERATE (5-7), #14 TAB 0 Refills Prov: RAFAEL YOON 05/07/22 RAFAEL YOON May 07, 2022 18:19
--- NOTE | 2022-05-07 18:39 | Diagnostic Imaging Report ---
CLINICAL INDICATION: Patient attempted to stand and felt a pop in the right ankle and now has pain and hurts to bear weight. EXAM: X-ray of the right ankle, 3 views. COMPARISON: None. FINDINGS: There is a displaced fracture of the posterior malleolus which is distracted by roughly 7 mm. There is roughly 3 mm step-off in the articular portion. There is slight anterior position of the distal tibia in relation to the talus. There is a slightly displaced fracture of the lateral malleolus which is displaced slightly laterally. The medial malleolus appears intact. The ankle mortise and syndesmotic joints unremarkable. There is swelling about the ankle. IMPRESSION: There are displaced fractures involving the lateral and posterior malleolar regions which is described above. There is soft tissue swelling about the ankle. Dictated by: Dictated on workstation # [id number]
[2022-05-07] MEDS ORDERED: ACHD5005 PO (20:08)
[2022-05-07] MEDS ORDERED: wheelchair TOP (20:22)
[2022-05-07 20:40] VITALS: BP 192/96
== END 2022-05-07 20:44 | disposition home or self-care (01) ==
LOC: EDUNIT# 18:03 → ER 18:05
DX: S82.841A Displaced bimalleolar fracture of right lower leg, initial encounter for closed fracture (principal); R09.89 Other specified symptoms and signs involving the circulatory and respiratory systems; Z91.14 Patient's other noncompliance with medication regimen; W18.30XA Fall on same level, unspecified, initial encounter
CPT/HCPCS: 29515; 73610

== ENCOUNTER 2022-05-11 11:56 | Outpatient (CLI) | payer MEDICARE, OTHER ==
[~2022-05-11] VITALS: Ht 160 cm; Wt 54.4 kg
[~2022-05-11 11:56] MED LIST changes: -LEVO88TA54 PO; -LORA-404 PO; -LOSA25TA41 PO
[2022-05-11] MEDS ORDERED: LORA-404 PO (12:51)
[2022-05-12] MEDS ORDERED: ACHD5005 PO (11:31)
== END 2022-05-11 13:57 | disposition home or self-care (01) ==
LOC: PREOP 11:56
PROVIDERS: ATTEND Orthopaedic Surgery
DX: Z01.818 Encounter for other preprocedural examination (principal)

== ENCOUNTER → 2022-05-11 | Outpatient (CLI) | payer MEDICARE, OTHER ==
[~2022-05-11] MED LIST changes: +ACHD5005 PO; +LEVO88TA54 PO; +LORA-404 PO; +LOSA25TA41 PO; +wheelchair TOP
== END ==
LOC: ORTHO 09:06
PROVIDERS: ATTEND Orthopaedic Surgery
DX: S82.841A Displaced bimalleolar fracture of right lower leg, initial encounter for closed fracture (principal); X58.XXXA Exposure to other specified factors, initial encounter
CPT/HCPCS: 99203

== ENCOUNTER 2022-05-12 08:31 | Day surgery (SDC) | payer MEDICARE ==
[~2022-05-12] VITALS: Ht 160 cm; Wt 54.4 kg
[2022-05-12] VITALS (14 sets, daily range): BP systolic 144–192; BP diastolic 68–108
[~2022-05-12 08:31] MED LIST changes: +LORA-404 PO
[2022-05-12] MEDS ORDERED: LACTATED RINGERS 1,000 ML IV PRN (08:45)
[2022-05-12] MEDS ORDERED: ceFAZolin INJECTION 1,000 MG VIAL IV ONE (08:45)
[2022-05-12] MEDS ORDERED: BUPIVACAINE 0.25% 30 ML (SENSORCAINE) VIAL ONE (09:00)
[2022-05-12] MEDS ORDERED: LIDOCAINE PF 1% 5 ML (XYLOCAINE) AMP ONE (09:04)
[2022-05-12] MEDS ORDERED: fentaNYL INJ 100 MCG/2 ML AMP ONE (09:04)
[2022-05-12] MEDS ORDERED: ONDANSETRON 4 MG/2 ML (SDV) Z0FRAN ONE (09:04)
[2022-05-12] MEDS ORDERED: proPOfol 200 MG/20 ML (DIPRIVAN) VIAL IV ONE (09:04)
[2022-05-12] MEDS ORDERED: BUPIVACAINE 0.25% 30 ML (SENSORCAINE) VIAL INJ ONE (09:13)
[2022-05-12] MEDS ORDERED: SEVOFLURANE (ULTANE) 15 ML INHAL SOLN ONE (11:06)
--- NOTE | 2022-05-12 11:29 | Progress Note-Pre Operative ---
Pre-Operative Progress Note Date of Available H&P: May 11, 2022 Date H&P Reviewed: May 12, 2022 Time H&P Reviewed: 09:40 History & Physical: H&P Reviewed, Patient Examed, No changes noted Pre-Operative Diagnosis: Right Bimalleolar Ankle Fracture GILBERT BOLTON MD May 12, 2022 11:29
--- NOTE | 2022-05-12 11:29 | Operative Report - Ortho ---
Operative Report Surgeon (s)/Utility Bagger (s) Surgeon GILBERT BOLTON MD Utility Bagger n/a Pre-Operative Diagnosis right bimalleolar ankle fracture Post-Operative Diagnosis same Operative Report Date of Procedure: May 12, 2022 Name of Procedure Performed: Open Reduction and Internal Fixation of Right Bimalleolar Ankle Fracture Description & Findings After obtaining informed consent and marking the patient, patient did receive intravenous antibiotics. Taken to the operating room and general anesthesia was induced. Surgical timeout was taken. The right lower extremity was prepped and draped in the usual sterile fashion. Attention was initially turned to the fibula fracture, incision was made centered over the fracture. Dissection was carried down to the fracture and a periosteal elevator was used to expose the fibula proximally and distally. The fracture was provisionally reduced using clamps. After reducing the fibular fracture, distal fibular plate was selected and clamped in place. A wire was placed distally and a nonlocking screw was placed proximally to position. C-arm was used to confirm position of the plate and reduction of the fracture. A nonlocking screw was placed in the distal most hole and the wire was removed. 2 locking screws were used to in the distal portion of the plate. In addition to the nonlocking screw, 2 locking screws were placed in the proximal portion of the plate. The distal nonlocking screw was then replaced with a locking screw. C-arm demonstrated appropriate position of the plate and screws and maintained reduction of the fracture. Utilizing the C-arm for visualization, 2 wires were then placed anterior to posterior to capture the posterior malleolar fragment. Measurements were taken. 2 4.0 42 mm cannulated screws were then placed over the wires with the medial one having a washer. Screws were seated by hand and then the wires were removed. Final C-arm images were obtained in the AP, mortise, and lateral views and demonstrated appropriate reduction of the fractures and hardware in good position. The posterior malleolus fragment had been fixed in near anatomic position and demonstrated no significant articular disruption. Images were transferred to PACS. Wounds were irrigated with normal saline. Closed with 0 vicryl, 3-0 vicryl, and a combination of 3-0 and 4-0 nylon. Wounds were i njected with local anesthetic. Dressed with xeroform, 4x4s, ABD, cast padding, soft roll, posterior splint, and HALI wrap. Patient tolerated the procedure well and was stable to the recovery room. Anesthesia Type General Estimated Blood Loss less than 25 mL Specimen(s) collected/removed None GILBERT BOLTON MD May 12, 2022 11:28
[2022-05-12] MEDS ORDERED: fentaNYL INJ 100 MCG/2 ML AMP IVP ONE (11:30)
[2022-05-12] MEDS ORDERED: morphine INJ 10 MG/ML 1ML (SYR OR VIAL) IVP ONE (11:30)
[2022-05-12] MEDS ORDERED: ONDANSETRON 4 MG/2 ML (SDV) Z0FRAN IVP PRN ×2 (11:30→18:15)
[2022-05-12] MEDS ORDERED: ACHD5005 PO (11:31)
--- NOTE | 2022-05-12 11:39 | Diagnostic Imaging Report ---
Indication: Ankle fracture. ORIF. COMPARISON: 05/07/2022 Total fluoroscopy time: 39 seconds Total number fluoroscopic images saved: 3 FINDINGS: Multiple intraoperative image intensifier views of the right ankle were obtained. Images provided show postoperative changes of interval ORIF. Orthopedic side plate and screws are seen traversing the lateral margins the distal fibula. 2 partially threaded cannulated screws are also seen within the distal tibia. Please note, interpreting radiologist was not present during the procedure. IMPRESSION: 1. Fluoroscopic guidance provided during ORIF of the right ankle as above. Dictated by: Dictated on workstation # [id number]
--- NOTE | 2022-05-12 13:31 | Anesthesia-General Post-Op ---
General Patient Condition Mental Status/LOC: Same as Preop Cardiovascular: Satisfactory Nausea/Vomiting: Absent Respiratory: Satisfactory Pain: Controlled Complications: Absent Post Op Complications Complications None Follow Up Care/Instructions Patient Instructions None needed. Anesthesia/Patient Condition Patient Condition Patient is doing well, no complaints, stable vital signs, no apparent adverse anesthesia problems. No complications reported per nursing. GILBERT KATZ CRNA May 12, 2022 13:31
[2022-05-12] MEDS ORDERED: ANTACID SUSP 30 ML UDC (MYLANTA) PO PRN (19:00)
[2022-05-12] MEDS ORDERED: MELATONIN 3 MG TABLET PO PRN (19:00)
[2022-05-12] MEDS ORDERED: LACTULOSE SYRUP 10GM/15ML (ENULOSE) 30ML UDC PO PRN (19:00)
[2022-05-12] MEDS ORDERED: CALCIUM CARBONATE 500 MG (TUMS) TAB.CHEW PO PRN (19:00)
[2022-05-12] MEDS ORDERED: ONDANSETRON 4 MG/2 ML (SDV) Z0FRAN IV PRN (19:00)
[2022-05-12] MEDS ORDERED: ACETAMINOPHEN 325 MG TABLET PO PRN (19:00)
[2022-05-12] MEDS ORDERED: polyethylene glycoL POWDER 17 GM (MIRALAX) PACK PO PRN (19:00)
[2022-05-12] MEDS ORDERED: ONDANSETRON 4 MG (ZOFRAN) ORAL DISSOLVE TAB PO PRN (19:00)
[2022-05-12] MEDS ORDERED: hydrALAZINE (APESOLINE) 20 MG/ML VIAL IV PRN (19:00)
[2022-05-12] MEDS ORDERED: MILK OF MAGNESIA 400 MG/5 ML 30 ML UDC PO PRN (19:00)
[2022-05-12] MEDS ORDERED: BISACODYL 10 MG SUPP (DULCOLAX) PR PRN (19:00)
[2022-05-12] MEDS: HYDROcodone/APAP 5 MG/325 MG (LORTAB) TAB PO PRN (19:51)
[2022-05-12] MEDS: DOCUSATE SODIUM 100 MG (COLACE) CAP PO SCH (22:56)
[2022-05-12] MEDS: SENNOSIDES 8.6 MG (SENOKOT) TAB PO SCH (22:56)
[2022-05-13 00:16] VITALS: BP 120/59
[2022-05-13 03:44] VITALS: BP 121/58
[2022-05-13] MEDS: HYDROcodone/APAP 5 MG/325 MG (LORTAB) TAB PO PRN ×2 (05:12→13:36)
[2022-05-13 06:20] LABS: POTASSIUM 3.7 MMOL/L (3.6-5.0)
[2022-05-13 06:21] LABS: CALCIUM 8.9 MG/DL (8.5-10.1)
[2022-05-13 06:25] LABS: CREATININE SERUM 0.7 MG/DL (0.60-1.30)
[2022-05-13 07:55] VITALS: BP 133/65
[2022-05-13] MEDS ORDERED: LEVOTHYROXINE 88 MCG (LEVOTHORID) TAB PO NR (08:00)
[2022-05-13] MEDS ORDERED: ENOXAPARIN 40 MG/0.4 ML (LOVENOX) SYR SC SCH (08:00)
--- NOTE | 2022-05-13 08:22 | Anesthesia-General Post-Op ---
General Patient Condition Mental Status/LOC: Same as Preop Cardiovascular: Satisfactory Nausea/Vomiting: Absent Respiratory: Satisfactory Pain: Controlled Complications: Absent Post Op Complications Complications None Follow Up Care/Instructions Patient Instructions None needed. Anesthesia/Patient Condition Patient Condition Patient is doing well, no complaints, stable vital signs, no apparent adverse anesthesia problems. No complications reported per nursing. D/C home per [facility] Criteria: Yes IAM FLOYD CRNA May 13, 2022 08:22
--- NOTE | 2022-05-13 08:25 | Progress Note - Ortho ---
Progress Note Subjective Date of Exam 05/13/22 Chief Complaint POD #1 ORIF R Ankle HPI/Events since last exam admitted observation, no issues this AM Review of Systems - Allergies: Coded Allergies: pneumococcal vaccine (Unverified Allergy, Severe, HIVES, EDEMA, 11/18/11) meperidine (Unverified Allergy, Mild, vomiting, 02/15/10) Gujtlsu-SHV-XmH Reductase Inhibitor (Verified Adverse Reaction, Unknown, puffiness, 12/08/19) Home Meds Active Scripts Hydrocodone/Acetaminophen (Hydrocodone-Acetamin 5-325 mg) 5 Mg-325 Mg Tablet, 1 TAB PO Q4H PRN for PAIN-MODERATE (5-7) for 7 Days, #40 TAB 0 Refills Prov:GILBERT BOLTON MD 05/12/22 Reported Medications Lorazepam (Ativan) 0.5 Mg Tablet, 0.5 MG PO BID PRN for ANXIETY, TAB 05/11/22 Discontinued Reported Medications Potassium Chloride (K-Tab ER) 8 Meq Tablet.er, 8 MEQ DAILY 12/08/19 Levothyroxine Sodium (Levothyroxine Sodium) 88 Mcg Tablet, 88 MCG DAILY 12/08/19 Discontinued Scripts [wheelchair] No Conflict Check, EA TOP DAILY PRN for Pain, #1 0 Refills NPI #: [id number] Prov:RAFAEL YOON 05/07/22 Objective Exam R Ankle: Splint C/D/I, +DF of ankle, no s/s of DVT Vital Signs Vital Signs Date Time Temp Pulse Resp B/P (MAP) Pulse Ox O2 Delivery O2 Flow Rate FiO2 05/13/22 07:55 36.9 68 16 133/65 (87) 90 Room Air 05/13/22 03:44 37.6 60 18 121/58 (79) 90 Room Air 05/13/22 00:16 37.4 70 18 120/59 (79) 90 Room Air 05/12/22 21:00 Room Air 05/12/22 19:52 Room Air 05/12/22 19:10 36.7 60 16 165/81 (109) 92 Room Air 05/12/22 17:00 36.0 80 18 144/68 (93) 94 Room Air 05/12/22 16:40 Room Air 05/12/22 13:25 36.1 70 18 169/83 98 Nasal Cannula 3.00 05/12/22 12:55 36.1 70 18 167/85 99 Nasal Cannula 3.00 05/12/22 12:25 Nasal Cannula 3.00 05/12/22 12:25 36.0 60 18 156/81 98 Nasal Cannula 3.00 05/12/22 12:16 12 155/82 (106) 98 Nasal Cannula 3.00 05/12/22 12:10 36.4 11 154/74 (100) 96 Nasal Cannula 3.00 05/12/22 12:05 Nasal Cannula 3.00 05/12/22 12:00 12 166/76 (106) 96 Nasal Cannula 3.00 05/12/22 11:50 OxyMask 10.00 05/12/22 11:50 14 191/108 (135) 100 OxyMask 10.00 05/12/22 11:40 12 179/102 (127) 100 OxyMask 10.00 05/12/22 11:30 12 192/102 (132) 100 OxyMask 10.00 05/12/22 11:21 16 187/101 (129) 100 OxyMask 10.00 05/12/22 11:14 36.6 12 159/87 (111) 96 OxyMask 10.00 05/12/22 11:14 OxyMask 10.00 05/12/22 08:40 36.0 75 16 157/80 (105) 97 Room Air I & O 05/13/22 07:00 Intake Total 1400 ml Balance 1400 ml Lab Results Laboratory Tests 05/13/22 05:20: Sodium Level 134L, Potassium Level 3.7, Chloride Level 101, Carbon Dioxide Level 23, Anion Gap 10, Blood Urea Nitrogen 7, Creatinine 0.70, Estimat Glomerular Filtration Rate 86, BUN/Creatinine Ratio 10, Glucose Level 110H, Calcium Level 8.9, Thyroid Stimulating Hormone (TSH) 11.95H Assessment and Plan Assessment s/p ORIF R Ankle Fx Problem List s/p ORIF R Ankle Fx Plan Condition improved D/C Home Final Diagonsis s/p ORIF R Ankle Fx Level of the visit: Level 3 (postop global) GILBERT BOLTON MD May 13, 2022 08:25
[2022-05-13] MEDS ORDERED: LOSARTAN 25 MG (COZAAR) TAB PO SCH (09:00)
[2022-05-13] MEDS: SENNOSIDES 8.6 MG (SENOKOT) TAB PO SCH (09:06)
[2022-05-13] MEDS: DOCUSATE SODIUM 100 MG (COLACE) CAP PO SCH (09:06)
--- NOTE | 2022-05-13 10:09 | Physical Therapy Evaluation ---
PT Evaluation-General Medical Diagnosis Admission Date May 12, 2022 Medical Diagnosis: right ankle fracture Onset Date: May 12, 2022 Therapy Diagnosis Therapy Diagnosis: debility/weakness Precautions Precautions/Isolations: Standard Precautions Weight Bear Status Right Lower Extremity: Right Non Weight Bearing Left Lower Extremity: Left Full Weight Bearing Referral Physician: Abbi Reason for Referral: Evaluation/Treatment Medical History Pertinent Medical History: Hypothroidism Current History ER secondary to right ankle fracture Reviewed History: Yes Social History Home: Apartment Current Living Status: Alone Entry Into Home: Level Entry Prior Prior Level of Function SCALE: Activities may be completed with or without assistive devices. 2-Nhjvwircuq-syytdfi completes the activity by him/herself with no assistance from a helper. 5-Set-up or Clean-up Assistance-helper sets up or cleans up; patient completes activity. [place] assists only prior to or following the activity. 4-Supervision or Touching Assistance-helper provides verbal cues and/or touching/steadying and/or contact guard assistance as patient completes activity. Assistance may be provided throughout the activity or intermittently. 3-Partial/Moderate Assistance-helper does LESS THAN HALF the effort. [place] lifts, holds or supports trunk or limbs, but provides less than half the effort. 2-Substantial/Maximal Assistance-helper does MORE THAN HALF the effort. [place] lifts or holds trunk or limbs and provides more than half the effort. 4-Baebzuyet-zmfpqd does ALL the effort. Patient does none of the effort to complete the activity. Or, the assistance of 2 or more helpers is required for the patient to complete the activity. If activity was not attempted, code reason: 7-Patient Refused. 9-Not Applicable-not attempted and the patient did not perform the activity before the current illness, exacerbation or injury. 10-Not Attempted due to Environmental Limitations-(lack of equipment, weather restraints, etc.). 88-Not Attempted due to Medical Conditions or Safety Concerns. Bed Mobility: 6 Transfers (B,C,W/C): 6 Gait: 6 Indoor Mobility (Ambulation): Independent Prior Devices Use: None PT Evaluation-Current Subjective Patient agrees to PT. Objective Patient Orientation: Normal For Age ROM/Strength ROM Lower Extremities right LE soft splint/cast distal LE/left LE WFL Strength Lower Extremities right LE NT/left LE 3+/5 grossly Integumentary/Posture Integumentary refer to nursing notes Bowel Incontinence: No Bladder Incontinence: No Posture kyphotic Neuromuscular (Tone, Coordination, Reflexes) grossly intact Sensory Vision: Functional Hearing: Impaired Transfers Lying to Sitting/Side of Bed(Q: 6 Sit to Stand (QC): 4 Chair/Oij-ni-Xeppj Xfer(QC): 4 Toilet Transfer (QC): 4 Gait Mode of Locomotion: Walk Anticipated Mode of Locomotion: Walk Walk 10 feet (QC): 4 Walk 50 ft with 2 Turns(QC): 4 Walk 150 ft (QC): 88 Distance: 50' x 2 Gait Assistive Device: FWW Comments/Gait Description Patient is able to maintain NWB right LE without difficulty Balance Sitting Static: Normal Sitting Dynamic: Normal Standing Static: Fair Standing Dynamic: Fair Assessment/Needs 82 y.o. female, will benefit from skilled PT to address functional strength and mobility to improve current LOF. Rehab Potential: Fair PT Group Home Goals Clinic Manager Goals PT Clinic Manager Goals Time Frame: May 29, 2022 Roll Left & Right (QC): 6 Sit to Lying (QC): 6 Lying-Sitting on Side/Bed(QC): 6 Sit to Stand (QC): 6 Chair/Psn-su-Jknyy Xfer(QC): 6 Toilet Transfer (QC): 6 Walk 10 feet (QC): 6 Walk 50ft with 2 Turns (QC): 6 Walk 150 ft (QC): 6 PT Plan Problem List Problem List: Activity Tolerance, Functional Strength, Safety, Balance, Gait, Transfer Treatment/Plan Treatment Plan: Continue Plan of Care Treatment Plan: Bed Mobility, Education, Functional Activity Kyra, Functional Strength, Gait, Safety, Therapeutic Exercise, Transfers Treatment Duration: May 29, 2022 Frequency: 11 times per week Estimated Hrs Per Day: .5 hour per day Safety Risks/Education Patient Education: Gait Training Teaching Recipient: Patient Teaching Methods: Demonstration, Discussion Response to Teaching: Verbalize Understanding, Return Demonstration Time/GCodes Time In: 908 Time Out: 920 Total Billed Treatment Time: 12 Total Billed Treatment 1 visit EVModC 12 min CHUCK MARQUES PT May 13, 2022 10:09
--- NOTE | 2022-05-13 11:20 | Occupational Therapy Eval ---
OT Evaluation-General/PLF Medical Diagnosis Admission Date Medical Diagnosis: right ankle fracture Onset Date: May 12, 2022 Therapy Diagnosis Therapy Diagnosis: decreased ADL status Precautions Precautions/Isolations: Standard Precautions Weight Bear Status Weight Bearing Restriction: Non Weight Bearing Location Restriction: R LE Referral Physician: Abbi Valerio Reason: Evaluation/Treatment Medical History Pertinent Medical History: Hypothroidism Social History Home: Apartment Current Living Status: Alone Entry Into Home: Level Entry ADL-Prior Level of Function SCALE: Activities may be completed with or without assistive devices. 7-Vrsjnywrjn-iehsqlj completes the activity by him/herself with no assistance from a helper. 5-Set-up or Clean-up Assistance-helper sets up or cleans up; patient completes activity. [place] assists only prior to or following the activity. 4-Supervision or Touching Assistance-helper provides verbal cues and/or touching/steadying and/or contact guard assistance as patient completes activity. Assistance may be provided throughout the activity or intermittently. 3-Partial/Moderate Assistance-helper does LESS THAN HALF the effort. [place] lifts, holds or supports trunk or limbs, but provides less than half the effort. 2-Substantial/Maximal Assistance-helper does MORE THAN HALF the effort. [place] lifts or holds trunk or limbs and provides more than half the effort. 0-Fvmwzwzsl-cipoui does ALL the effort. Patient does none of the effort to complete the activity. Or, the assistance of 2 or more helpers is required for the patient to complete the activity. If activity was not attempted, code reason: 7-Patient Refused. 9-Not Applicable-not attempted and the patient did not perform the activity be fore the current illness, exacerbation or injury. 10-Not Attempted due to Environmental Limitations-(lack of equipment, weather restraints, etc.). 88-Not Attempted due to Medical Conditions or Safety Concerns. ADL PLOF Comments Pt reports IND with ADLs and mobility at [facility], she has a walker from family available and her family has a wheelchair. Pt believes she has a tub transfer bench. Self Care: Independent Functional Cognition: Independent DME/Equipment: Tub/Shower OT Current Status Subjective Pt in recliner, agreeable to OT tx. Pt hyperverbal throughout tx, requiring redirection to conversation and task. Mental Status/Objective Patient Orientation: Person, Place, Time, Situation Current Upper Extremity ROM WFL Upper Extremity Strength WFL ADL-Treatment Eating (QC): 6 Oral Hygiene (QC): 5 Toileting Hygiene (QC): 4 Other Treatments Pt in recliner, provided information about PLOF and home set up. Pt used FWW to perform functional mobility into bathroom and onto toilet, CGA-SBA. Pt completed toileting, then stood at sink to wash hands, and returned to recliner. Pt able to maintain NWB RLE. Pt educated on tub transfer bench, she verbalized understanding and believes she has one at home. Post tx, pt in recliner, call light in reach and all needs met. Education OT Patient Education: Correct positioning, Energy conservation, Rehab process Teaching Recipient: Patient Teaching Methods: Discussion Response to Teaching: Verbalize Understanding OT Reception Agent Goals Long-Term Goals Time Frame: May 21, 2022 Eating (QC): 6 Oral Hygiene (QC): 6 Toileting Hygiene (QC): 6 Shower/Bathe Self (QC): 6 Upper Body Dressing (QC): 6 Lower Body Dressing (QC): 6 On/Off Footwear (QC): 6 Additional Goals: 1-Demonstrate ADL Tasks, 2-Verbalize Understanding, 3- ImproveStrength/Kyra 1=Demonstrate adherence to instructed precautions during ADL tasks. 2=Patient will verbalize/demonstrate understanding of assistive devices/modifications for ADL. 3=Patient will improve strength/tolerance for activity to enable patient to perform ADL's. OT Education/Plan Problem List/Assessment Assessment: Decreased Activ Tolerance, Decreased UE Strength, Impaired Funct Balance, Impaired I ADL's, Impaired Self-Care Skills Discharge Recommendations Plan/Recommendations: Continue POC Treatment Plan/Plan of Care Patient would benefit from OT for education, treatment and training to promote independence in ADL's, mobility, safety and/or upper extremity function for ADL's. Plan of Care: ADL Retraining, Functional Mobility, UE Funct Exercise/Act Treatment Duration: May 21, 2022 Frequency: 3 times per week Rehab Potential: Fair Time/GCodes Start Time: 10:35 Stop Time: 11:00 Total Time Billed (hr/min): 25 Billed Treatment Time 1, EVL (10'), ADL (15') THIERRY TOLENTINO OT May 13, 2022 11:20
[2022-05-13 12:05] VITALS: BP 159/55
[2022-05-13] MEDS ORDERED: LEVO88TA54 PO (12:09)
[2022-05-13] MEDS ORDERED: LOSA25TA41 PO (12:09)
--- NOTE | 2022-05-13 12:09 | D/C HH Face to Face Order ---
D/C Face to Face Orders Reconcile Patient Problems Problems Reviewed?: Yes Instructions for Patient Via Nimisha [employer], Patient Instructions/FollowUp: Take medications as prescribed. Maintain non-weight bearing status for 6 weeks. Follow up with your PCP, Dr. Cunningham. Return with worsening pain or if you feel like you are getting worse. Physician to follow Patient: Cunningham Discharge Diet for Home: Low Sodium Diet Patient Data-Allergies,Ht & Wt Patient Allergies: Coded Allergies: pneumococcal vaccine (Unverified Allergy, Severe, HIVES, EDEMA, 11/18/11) meperidine (Unverified Allergy, Mild, vomiting, 02/15/10) Yunacla-WJU-NoO Reductase Inhibitor (Verified Adverse Reaction, Unknown, puffiness, 12/08/19) Home Health Need/Face to Face Date of Face to Face: May 13, 2022 Clinical Findings: Generalized weakness and fatigue, Instability, Muscle weakness I have seen Pt ccss-en-mnoq: Yes Discharged To: Home Diagnosis/Conditions: Ankle fracture HTN Hypothyroidism Problems/Diagnosis/Condition: (1) HTN (hypertension) (2) Hypothyroidism (3) Ankle fracture Patient is Homebound due to: Jesse fall risk due to instabilty, Muscle weakness Homebound Status Due to the above stated illness, injury or surgical procedure (medical condition or diagnosis) and associated clinical findings, the patient is homebound because of his/her inability to leave home except with aid of a s upportive device and/or person AND leaving the home requires a considerable and taxing effort or is medically contraindicated. Pt req the following assistanc: Aid of another person, Walker Home Health Nursing Orders Home Health Services Order: Nursing Services, Chain Hoist Operator-Evaluate & Treat, Physical Therapy-Evaluate & Treat Non-weightbearing right lower extremity Home Health Infusion Therapy Line Start Date: May 12, 2022 Therapy Orders Therapy Orders: OT (must have SN or PT order), Physical Therapy Therapy Specific Orders: Eval assistive deivces, Teach enviro modifications/safety, Gait training, Increase strength/endurance Certify Stmt I certify that this patient is under my care and that I, a nurse practitioner or a physician; a automotive service assistant working with me, had a face to face encounter that - meets the physician face to face encounter requirements with this patient as dated. AKANKSHA VERA MD May 13, 2022 12:09
--- NOTE | 2022-05-13 13:29 | Physical Therapy Daily Note ---
PT Daily Note-Current Subjective Patient agrees to PT. Pain Numeric Pain Scale: 5-Moderate Pain Location: Right Location Body Site: Ankle Pain Description: Acute Transfers SCALE: Activities may be completed with or without assistive devices. 4-Twjnpylimv-rdxijib completes the activity by him/herself with no assistance fr om a helper. 5-Set-up or Clean-up Assistance-helper sets up or cleans up; patient completes activity. [place] assists only prior to or following the activity. 4-Supervision or Touching Assistance-helper provides verbal cues and/or touching/steadying and/or contact guard assistance as patient completes activity. Assistance may be provided throughout the activity or intermittently. 3-Partial/Moderate Assistance-helper does LESS THAN HALF the effort. [place] lifts, holds or supports trunk or limbs, but provides less than half the effort. 2-Substantial/Maximal Assistance-helper does MORE THAN HALF the effort. [place] lifts or holds trunk or limbs and provides more than half the effort. 7-Ylaraoygy-pvsmjp does ALL the effort. Patient does none of the effort to complete the activity. Or, the assistance of 2 or more helpers is required for the patient to complete the activity. If activity was not attempted, code reason: 7-Patient Refused. 9-Not Applicable-not attempted and the patient did not perform the activity before the current illness, exacerbation or injury. 10-Not Attempted due to Environmental Limitations-(lack of equipment, weather restraints, etc.). 88-Not Attempted due to Medical Conditions or Safety Concerns. Sit to Stand (QC): 4 (SBA) Weight Bearing Right Lower Extremity: Right Non Weight Bearing Left Lower Extremity: Left Full Weight Bearing Gait Training Distance: 50' Walk 10 feet (QC): 4 Walk 50 ft with 2 Turns(QC): 4 Gait Assistive Device: FWW Able to maintain NWB right LE Exercises Seated Therapy Exercises: Long arc quads Seated Reps: 15 Assessment Patient able to ambulate short distance with NWB right LE and FWW. Per patient, family has a w/c and walker for home use. From a PT standpoint,Patient would benefit from in home care or care facility due to safety and fall concerns with NWB right LE and age. PT Lab Associate Goals Long-Term Goals PT Lab Associate Goals Time Frame: May 29, 2022 Roll Left & Right (QC): 6 Sit to Lying (QC): 6 Lying-Sitting on Side/Bed(QC): 6 Sit to Stand (QC): 6 Chair/Vpx-oc-Ettop Xfer(QC): 6 Toilet Transfer (QC): 6 Walk 10 feet (QC): 6 Walk 50ft with 2 Turns (QC): 6 Walk 150 ft (QC): 6 PT Plan Treatment/Plan Treatment Plan: Continue Plan of Care Treatment Plan: Bed Mobility, Education, Functional Activity Kyra, Functional Strength, Gait, Safety, Therapeutic Exercise, Transfers Treatment Duration: May 29, 2022 Frequency: 11 times per week Estimated Hrs Per Day: .5 hour per day Time/GCodes Time In: 1305 Time Out: 1316 Total Billed Treatment Time: 11 Total Billed Treatment 1 visit GT 11 min CHUCK MARQUES PT May 13, 2022 13:29
[2022-05-13 15:10] VITALS: BP 159/55
--- NOTE | 2022-05-13 15:29 | Short Stay Summary-Hospitalist ---
History of Present Illness HPI/Chief Complaint Mira Manzano is an 82 year old female with PMH HTN, hypothyroidism, who was admitted after a right ankle surgery. She required pain medication after the surgery and was unable to safely discharge home. Upon my exam, she is feeling better. Her pain is well controlled. She has been up ambulating with a walker. She has no other complaints. She wants to return home. Source: patient Exam Limitations: no limitations Date Seen 05/13/22 Time Seen by a Provider: 11:05 Attending Physician Shin Cunningham MD PCP Admitting Physician: Attending Physician: Sami Hollins MD Referring Physician Date of Admission Home Medications & Allergies Home Medications Reviewed patient Home Medication Reconciliation performed by pharmacy medication reconciliations ekg/ecg technician and/or nursing. Patients Allergies have been reviewed. Allergies Allergies Coded Allergies pneumococcal vaccine (Unverified Allergy, Severe, HIVES, EDEMA, 11/18/11) meperidine (Unverified Allergy, Mild, vomiting, 02/15/10) Tqtmbbg-JYO-VtN Reductase Inhibitor (Verified Adverse Reaction, Unknown, puffiness, 12/08/19) Past Gkjcibe-Zffomb-Uwtkzl Hx Immunizations Up To Date Date of Influenza Vaccine: Jun 12, 2021 First/Initial COVID19 Vaccinat: yes Second COVID19 Vaccination Jovanni: yes Seasonal Allergies Seasonal Allergies: No Current Status Primary Language: [place]ian Past Medical History High Cholesterol TIA Osteoporosis, Fractures Hypothyroidsim Anxiety Blood Disorders: No Family Medical History No Pertinent Family Hx Review of Systems Constitutional: no symptoms reported EENTM: no symptoms reported Respiratory: no symptoms reported Cardiovascular: no symptoms reported Gastrointestinal: no symptoms reported Physical Exam Physical Exam Vital Signs Vital Signs - First Documented 05/12/22 08:40 Temp 36.0 Pulse 75 Resp 16 B/P (MAP) 157/80 (105) Pulse Ox 97 O2 Delivery Room Air Capillary Refill : Less Than 3 Seconds Height, Weight, BMI Height: '" Weight: lbs. oz. kg; 21.25 BMI Method:Stated General Appearance: No Apparent Distress, WD/WN HEENT: PERRL/EOMI, Pharynx Normal Neck: Normal Inspection, Supple Respiratory: Lungs Clear, No Respiratory Distress Cardiovascular: Regular Rate, Rhythm, No Murmur Gastrointestinal: Normal Bowel Sounds, Soft Extremity: Normal Inspection, No Pedal Edema Neurologic/Psychiatric: Alert, Normal Mood/Affect Skin: Normal Color, Warm/Dry Results Results/Procedures Labs Laboratory Tests 05/13/22 05:20 Patient resulted labs reviewed. Imaging: Reviewed Imaging Report Short Stay Diagnosis Discharge Diagnosis-Short Stay Admission Diagnosis Ankle fracture Final Discharge Diagnosis Ankle fracture Conclusion Plan Ankle fracture s/p surgical repair with Ortho Pain meds ordered Non-weight bearing right lower extremity Walker Home health Follow up with PCP and Ortho as scheduled HTN Hypothryoidism Refills given for Losartan and Levothyroxine Diagnosis/Problems Diagnosis/Problems (1) Ankle fracture Status: Acute (2) HTN (hypertension) Status: Chronic (3) Hypothyroidism Status: Chronic AKANKSHA VERA MD May 13, 2022 15:29
[2022-05-14] MEDS ORDERED: LEVOTHYROXINE 88 MCG (LEVOTHORID) TAB PO SCH (06:30)
== END 2022-05-13 15:12 | disposition home health service (06) ==
LOC: SDC 08:31 → 4TH 16:40 → SDC 05-13 15:12
PROVIDERS: ATTEND Orthopaedic Surgery
DX: S82.841A Displaced bimalleolar fracture of right lower leg, initial encounter for closed fracture (principal); Z87.891 Personal history of nicotine dependence; I10 Essential (primary) hypertension; E03.9 Hypothyroidism, unspecified; Z79.899 Other long term (current) drug therapy; Z79.890 Hormone replacement therapy
CPT/HCPCS: 27814; 76000; 80048; 84443; 87081; 97116; 97162; 97165; 97535; C1713 ×7; C1769; G0378; G0379; 36415

== ENCOUNTER → 2022-06-17 | Outpatient (CLI) | payer MEDICARE ==
[~2022-06-17] MED LIST changes: +LEVO88TA54 PO; +LOSA25TA41 PO
--- NOTE | 2022-06-17 16:11 | Diagnostic Imaging Report ---
INDICATION: Right ankle pain. EXAMINATION: AP, oblique and lateral views of the right ankle were obtained. COMPARISON: 05/07/2022. FINDINGS: Distal fibular fracture appears in anatomic alignment with plate and screws in place, fracture line is no longer visible. Distal tibial fracture appears in anatomic alignment with two screws in place. Joint spaces are unremarkable. IMPRESSION: Well aligned distal tibial and fibular fractures status post ORIF. Dictated by: Dictated on workstation # [id number]
== END ==
LOC: ORTHO 09:58
PROVIDERS: ATTEND Orthopaedic Surgery
DX: Z47.89 Encounter for other orthopedic aftercare (principal); S82.301D Unspecified fracture of lower end of right tibia, subsequent encounter for closed fracture with routine healing; S82.401D Unspecified fracture of shaft of right fibula, subsequent encounter for closed fracture with routine healing; X58.XXXD Exposure to other specified factors, subsequent encounter
CPT/HCPCS: 73610

== ENCOUNTER → 2022-06-30 | Outpatient (CLI) | payer MEDICARE | LOC: LAB 13:19 | PROVIDERS: ATTEND Internal Medicine | DX: E03.9 Hypothyroidism, unspecified (principal) | CPT/HCPCS: 36415; 84443 ==

== ENCOUNTER → 2022-07-08 | Outpatient (CLI) | payer MEDICARE ==
--- NOTE | 2022-07-08 15:02 | Diagnostic Imaging Report ---
INDICATION: Followup of distal fibular fracture. Pain. COMPARISON: 06/17/2022. EXAMINATION: Right ankle, 3 views. FINDINGS: The fibular sideplate and cannulated bone screws through the distal tibia all remain in good position and unchanged. No evidence of hardware loosening. There are no cortical fractures. The ankle mortise appears normal. IMPRESSION: Stable appearing ankle with internal hardware showing no complications. Dictated by: Dictated on workstation # [id number]
== END ==
LOC: ORTHO 10:52
PROVIDERS: ATTEND Orthopaedic Surgery
DX: Z47.89 Encounter for other orthopedic aftercare (principal); S82.831D Other fracture of upper and lower end of right fibula, subsequent encounter for closed fracture with routine healing; X58.XXXD Exposure to other specified factors, subsequent encounter
CPT/HCPCS: 73610

== ENCOUNTER → 2022-08-10 | Outpatient (CLI) | payer MEDICARE ==
--- NOTE | 2022-08-10 14:53 | Diagnostic Imaging Report ---
Indication: Follow-up orthopedic assessment, pain COMPARISON: 07/08/2022 TECHNIQUE: 3 radiographs of the right ankle dated 08/10/2022 FINDINGS: Lateral plate and screw fixation of the distal fibula is again identified with 2 additional screws transfixing the distal tibia. No evidence of hardware complication. Healed/healing distal tibial fractures again noted in stable alignment. No new fracture or dislocation. No destructive osseous process. The talar dome is unremarkable. Ankle mortise is symmetric. No significant calcaneal enthesophytes. Mild soft tissue swelling about the ankle with potential small ankle joint effusion. IMPRESSION: Postsurgical changes involving the distal tibia and fibula without evidence of hardware complication. Soft tissue swelling about the ankle with potential small ankle joint effusion. No new acute fracture. Dictated by: Dictated on workstation # [id number]
== END ==
LOC: ORTHO 10:21
PROVIDERS: ATTEND Orthopaedic Surgery
DX: Z47.89 Encounter for other orthopedic aftercare (principal)
CPT/HCPCS: 73610